=== PATIENT | female | born 1980 | race Two or more races ===

== ENCOUNTER → 2023-05-28 | Emergency (ER) | payer OTHER ==
[~2023-05-28] VITALS: Ht 157.5 cm; Wt 59.9 kg
[~2023-05-28] MED LIST: LEVSIN/SL0.125 MG SL
[2023-05-28 12:01] LABS: URINE APPEARANCE Clear; URINE BILIRRUBIN Negative (NEGATIVE); URINE BLOOD Negative; URINE COLOR Yellow; URINE GLUCOSE Negative (NEGATIVE); URINE LEUKOCYTE Negative; URINE NITRATE Negative; URINE PROTEIN Negative (NEGATIVE); URINE UROBILINOGEN 0.2 E.U./dl
[2023-05-28 12:04] LABS: URINE BACTERIA 1168.7 uL (0.0-1933); URINE EPITHELIAL CELLS 47.1 uL (0.0-38.8); URINE RBC 3.3 uL (0.0-20.8); URINE WBC 2.9 uL (0.0-23.2)
[2023-05-28 12:23] LABS: HEMATOCRIT 41.3 % (36.0-45.00); HEMOGLOBIN 13.5 g/dL (12.0-15.00); MEAN CELL VOLUME 88.7 fL (80.00-100.00); MEAN CORPUSCULAR HGB CONC 32.7 g/dl (32.0-36.0); PLATELET COUNT 300 K/uL (150-450); RED BLOOD COUNT 4.65 M/uL (4.00-6.00); RED CELL DISTRIBUTION WIDTH 14.4 % (11.5-14.5)
[2023-05-28 12:28] LABS: BILIRUBIN TOTAL 0.58 mg/dL (0.3-1.2); CALCIUM 9.2 mg/dL (8.5-10.1); CREATININE SERUM 0.62 mg/dL (0.55-1.02); GFR 105.06; POTASSIUM 4.56 mEq/L (3.5-5.1)
== END | disposition home or self-care (01) ==
LOC: ER 09:35
PROVIDERS: General Practice
DX: B34.8 Other viral infections of unspecified site (principal); Z20.822 Contact with and (suspected) exposure to COVID-19

== ENCOUNTER 2023-08-27 16:01 | Emergency (ER) | payer OTHER ==
[~2023-08-27] VITALS: Ht 162.6 cm; Wt 63.5 kg
[2023-08-27] MEDS ORDERED: KETOROLAC TROMETHAMINE 60 MG VIAL IM ONE (17:45)
[2023-08-27 18:45] LABS: HEMATOCRIT 37.8 % (36.0-45.00); HEMOGLOBIN 12.8 g/dL (12.0-15.00); MEAN CELL VOLUME 90.1 fL (80.00-100.00); MEAN CORPUSCULAR HEMOGLOBIN 30.5 pg (27.00-32.0); MEAN CORPUSCULAR HGB CONC 33.8 g/dl (32.0-36.0); PLATELET COUNT 295 K/uL (150-450); RED CELL DISTRIBUTION WIDTH 13.2 % (11.5-14.5)
[2023-08-27 19:25] LABS: ALBUMIN 3.9 gm/dL (3.4-5.0); BILIRUBIN TOTAL 0.52 mg/dL (0.3-1.2); CALCIUM 9.5 mg/dL (8.5-10.1); CREATININE SERUM 0.69 mg/dL (0.55-1.02); GFR 92.42; GLOBULINA 3.7 G/DL (2.4-3.5); POTASSIUM 4.17 mEq/L (3.5-5.1); TOTAL PROTEIN 7.6 gm/dL (6.4-8.2)
== END 2023-08-27 21:45 | disposition home or self-care (01) ==
LOC: ER 16:01
PROVIDERS: General Practice
DX: D25.9 Leiomyoma of uterus, unspecified (principal)
CPT/HCPCS: 36415; 74177; Q9965

== ENCOUNTER 2023-11-03 10:30 | Outpatient (CLI) | payer OTHER | END 2023-11-03 10:35 | disposition home or self-care (01) | LOC: MAMO-SONO 10:30 | PROVIDERS: ATTEND Specialist | DX: N60.01 Solitary cyst of right breast (principal); N60.02 Solitary cyst of left breast; R10.2 Pelvic and perineal pain ==

== ENCOUNTER 2024-04-11 13:50 | Emergency (ER) | payer OTHER ==
[~2024-04-11] VITALS: Ht 170.2 cm; Wt 61.2 kg
[2024-04-11 14:28] VITALS: BP 117/87; O2SAT 100
[2024-04-11] MEDS ORDERED: HYDROCODONE/CHLORPHEN P-STIREX 5 ML ML PO STA (16:27)
[2024-04-11] MEDS ORDERED: CEFTRIAXONE SODIUM 1,000 MG VIAL IM STA (16:27)
== END 2024-04-11 16:41 | disposition home or self-care (01) ==
LOC: ER 13:52
DX: J06.9 Acute upper respiratory infection, unspecified (principal)

== ENCOUNTER → 2024-10-02 09:35 | Outpatient (CLI) | payer OTHER ==
[2024-10-02 10:15] LABS: HEMATOCRIT 38.5 % (36.0-45.00); HEMOGLOBIN 12.9 g/dL (12.0-15.00); MEAN CORPUSCULAR HEMOGLOBIN 29.9 pg (27.00-32.0); MEAN CORPUSCULAR HGB CONC 33.5 g/dl (32.0-36.0); PLATELET COUNT 276 K/uL (150-450); RED BLOOD COUNT 4.32 M/uL (4.00-6.00); RED CELL DISTRIBUTION WIDTH 13.8 % (11.5-14.5)
[2024-10-02 10:50] LABS: PH,URINE 7.5 (5.0-8.0); URINE APPEARANCE Cloudy; URINE BILIRRUBIN Negative (NEGATIVE); URINE BLOOD Negative; URINE COLOR Yellow; URINE GLUCOSE Negative (NEGATIVE); URINE KETONE Negative (NEGATIVE); URINE LEUKOCYTE Negative; URINE NITRATE Negative; URINE PROTEIN Negative (NEGATIVE); URINE UROBILINOGEN 0.2 E.U./dl
[2024-10-02 10:54] LABS: URINE BACTERIA 184.8 uL (0.0-1933); URINE EPITHELIAL CELLS 7.1 uL (0.0-38.8); URINE RBC 8.1 uL (0.0-20.8)
[2024-10-02 11:02] LABS: URINE CAST 0.14 uL (0.0-1.40); URINE WBC 1.2 uL (0.0-23.2)
[2024-10-02 11:48] LABS: ALBUMIN 3.8 gm/dL (3.4-5.0); BILIRUBIN TOTAL 0.65 mg/dL (0.3-1.2); CALCIUM 8.9 mg/dL (8.5-10.1); CHOL HDL RATIO 3.1 (0-5.0); CREATININE SERUM 0.5 mg/dL (0.55-1.02); GFR 133.42; GLOBULINA 3.8 G/DL (2.4-3.5); POTASSIUM 4.47 mEq/L (3.5-5.1); T4 FREE 1.04 NG/ML (0.76-1.46); TOTAL PROTEIN 7.6 gm/dL (6.4-8.2); TSH 1.88 uIU/mL (0.358-3.74)
== END | disposition home or self-care (01) ==
LOC: LAB 09:35
PROVIDERS: ATTEND Internal Medicine
DX: D50.9 Iron deficiency anemia, unspecified (principal); R74.01 Elevation of levels of liver transaminase levels; R74.8 Abnormal levels of other serum enzymes; E03.9 Hypothyroidism, unspecified; R73.02 Impaired glucose tolerance (oral); E55.9 Vitamin D deficiency, unspecified; E78.5 Hyperlipidemia, unspecified; R53.81 Other malaise; N30.00 Acute cystitis without hematuria; N39.0 Urinary tract infection, site not specified

== ENCOUNTER 2024-10-05 08:05 | Outpatient (CLI) | payer OTHER | END 2024-10-05 08:13 | disposition home or self-care (01) | LOC: TOM 08:05 | PROVIDERS: ATTEND Internal Medicine | DX: R10.13 Epigastric pain (principal); K63.4 Enteroptosis; R19.4 Change in bowel habit; R10.12 Left upper quadrant pain ==

== ENCOUNTER 2024-11-16 09:21 | Emergency (ER) | payer OTHER ==
[~2024-11-16] VITALS: Ht 160 cm; Wt 59.9 kg
[2024-11-16] MEDS ORDERED: BUTALB/ACETAMINOPHEN/CAFFEINE 1 TAB TABLET PO ONE (09:45)
[2024-11-16] MEDS ORDERED: ONDANSETRON HCL 2 MG/ML VIAL IV ONE (09:45)
[2024-11-16] MEDS ORDERED: FAMOtidine 10 MG/ML (4ML VIAL) IV ONE (09:45)
[2024-11-16] MEDS ORDERED: 0.9 % SODIUM CHLORIDE 1,000 ML IV ONE (09:45)
[2024-11-16 10:36] LABS: HEMATOCRIT 38.4 % (36.0-45.00); MEAN CELL VOLUME 88.1 fL (80.00-100.00); MEAN CORPUSCULAR HEMOGLOBIN 29.9 pg (27.00-32.0); MEAN CORPUSCULAR HGB CONC 33.9 g/dl (32.0-36.0); PLATELET COUNT 274 K/uL (150-450); RED BLOOD COUNT 4.35 M/uL (4.00-6.00); RED CELL DISTRIBUTION WIDTH 14.2 % (11.5-14.5)
[2024-11-16 11:47] LABS: COVID-19 AG NEGATIVE (NEGATIVE)
[2024-11-16 11:48] LABS: INFLUENZA A AG NEGATIVE (NEGATIVE)
[2024-11-16] MEDS ORDERED: ZOFRAN8 MG PO (12:02)
[2024-11-16] MEDS ORDERED: PROBIOTIC1 EAC2 PO (12:02)
[2024-11-16] MEDS ORDERED: BUTALBIT-ACETA1 EACH PO (12:02)
[2024-11-16] MEDS ORDERED: PEPCID AC20 MG PO (12:02)
== END 2024-11-16 12:24 | disposition home or self-care (01) ==
LOC: ER 09:22
PROVIDERS: General Practice
DX: R11.2 Nausea with vomiting, unspecified (principal); R11.10 Vomiting, unspecified

== ENCOUNTER 2025-03-12 10:42 | Outpatient (CLI) | payer OTHER ==
[~2025-03-12 10:42] MED LIST changes: +BUTALBIT-ACETA1 EACH PO; +PEPCID AC20 MG PO; +PROBIOTIC1 EAC2 PO; +ZOFRAN8 MG PO
== END 2025-03-12 10:56 | disposition home or self-care (01) ==
LOC: MAMO-SONO 10:42
DX: N60.01 Solitary cyst of right breast (principal); N60.02 Solitary cyst of left breast; D25.2 Subserosal leiomyoma of uterus